=== PATIENT | female | born 1945 | race Caucasian/White ===

== ENCOUNTER 2018-09-19 06:59 | Outpatient (CLI) | payer MEDICARE, OTHER ==
--- NOTE | 2018-09-20 05:40 | Ultrasound Report ---
Reason: R SUPRA CLAVICULAR SWELLING Procedure Date: 09/19/2018 Accession Number: [id number] / [id number] Procedure: US - Ext Limited Non Vascular CPT Code: FULL RESULT: EXAM: RIGHT UPPER EXTREMITY ULTRASOUND - LIMITED EXAM DATE: 09/19/2018 07:45 AM. CLINICAL HISTORY: Right supraclavicular swelling. COMPARISON: None. TECHNIQUE: Real-time scanning was performed with static images obtained. IMPRESSION: Striated appearing avascular masslike region at the site of palpable abnormality superior to the right clavicle measuring 62 x 18 x 65 mm. This is not clearly a benign lipoma or cyst. Potentially this could reflect some unusual muscular asymmetry or retraction. Suggest MRI for further evaluation to exclude other mass.
== END 2018-09-19 07:00 | disposition home or self-care (01) ==
LOC: DI 06:59
PROVIDERS: ATTEND Physician Assistant
DX: R22.31 Localized swelling, mass and lump, right upper limb (principal)
CPT/HCPCS: 76882

== ENCOUNTER 2020-10-07 15:52 | Outpatient (CLI) | payer MEDICARE, OTHER ==
--- NOTE | 2020-10-07 16:32 | XRAY Report ---
PROCEDURE: Hip w/Pelvis 2-3V LT INDICATIONS: LEFT HIP PAIN TECHNIQUE: AP pelvis with lateral view(s) of the left hip(s). COMPARISON: None. FINDINGS: Bones: No fractures or dislocations. Symmetric appearing mild to moderate bilateral hip joint osteoa rthritic changes are seen. No evidence of avascular necrosis of femoral head. Pelvic ring appears int act. No suspicious bony lesions. Soft tissues: The visualized bowel gas pattern is normal. No suspicious soft tissue calcifications. IMPRESSION: Symmetric appearing mild to moderate bilateral hip joint osteoarthritis. No hip fracture or dislocation. No evidence of avascular necrosis. Reviewed by: Ricky Ortiz MD on 10/07/2020 4:31 PM PDT Approved by: Ricky Ortiz MD on 10/07/2020 4:31 PM PDT Station ID: [id number]
--- NOTE | 2020-10-07 16:32 | XRAY Report ---
PROCEDURE: Knee 3 View LT INDICATIONS: LEFT KNEE PAIN TECHNIQUE: 3 views of the left knee(s) were acquired. COMPARISON: None. FINDINGS: Bones: No fractures or dislocations. Mild tricompartmental osteoarthritis is seen more prominent in medial femoral tibial compartment. No suspicious bony lesions. Soft tissues: No joint effusion. No suspicious soft tissue calcifications. IMPRESSION: Mild tricompartmental osteoarthritis more prominent in medial femoral tibial compartment . No fracture or dislocation. No significant joint effusion. Reviewed by: Ricky Ortiz MD on 10/07/2020 4:31 PM PDT Approved by: Ricky Ortiz MD on 10/07/2020 4:31 PM PDT Station ID: [id number]
== END 2020-10-07 15:53 | disposition home or self-care (01) ==
LOC: DI.N 15:52
PROVIDERS: ATTEND Physician Assistant
DX: M17.12 Unilateral primary osteoarthritis, left knee (principal); M16.0 Bilateral primary osteoarthritis of hip